=== PATIENT | female | born 1950 | race Caucasian/White ===

== ENCOUNTER → 2018-03-10 12:02 | Outpatient (CLI) | payer OTHER, SELFPAY ==
--- NOTE | 2018-03-10 | DI.MG.S_ITS ---
BILATERAL DIGITAL SCREENING MAMMOGRAM 3D/2D WITH CAD: 03/10/2018 CLINICAL: Routine screening. Comparison is made to exams dated: 02/13/2017 mammogram, 12/12/2015 mammogram - [facility], and 04/05/2014 mammogram - [facility]. There are scattered fibroglandular elements in both breasts. Current study was also evaluated with a Computer Aided Detection (CAD) system. No significant masses, calcifications, or other findings are seen in either breast. There has been no significant interval change. IMPRESSION: NEGATIVE There is no mammographic evidence of malignancy. A 1 year screening mammogram is recommended. This exam was interpreted at Station ID: [id number]. NOTE: For mammograms, a report in lay terms will be sent to the patient. Approximately 15% of breast malignancies will not be visualized mammographically. In the management of a palpable breast mass, a negative mammogram must not discourage biopsy of a clinically suspicious lesion. Electronically Signed By: Viktoriya srivastava/abner:03/10/2018 17:45:27 copy to: TAMI TOLEDO letter sent: Normal Exam ACR BI-RADS Category 1: Negative 3341F
== END ==
PROVIDERS: PCP Family Medicine; Visit Provider Family Medicine
DX: Z12.31 Encounter for screening mammogram for malignant neoplasm of breast (principal)
CPT/HCPCS: 77063; 77067

== ENCOUNTER → 2019-02-18 10:09 | Outpatient (CLI) | payer MEDICARE, OTHER, SELFPAY ==
--- NOTE | 2019-02-18 | DI.US.S_ITS ---
PROCEDURE: US ABDOMEN COMPLETE INDICATIONS: FULLNESS TECHNIQUE: Real-time scanning was performed of the abdominal and retroperitoneal organs, with image documentation. COMPARISON: [facility], US, US PELVIC COMPLETE, 02/18/2019, 10:51. FINDINGS: Liver: The liver demonstrates normal size. The liver demonstrates generalized increased echogenicity. This decreases ultrasound sensitivity for detection of hepatic masses. Gallbladder: No findings of gallstones or sludge are seen. The gallbladder wall is not thickened, measuring 3 mm or less. No specific pericholecystic fluid is seen. The sonographic Galeas sign is negative. Biliary ducts: Intrahepatic bile ducts are non-dilated. Extrahepatic bile duct caliber measures 4 mm. Normal is 6-7 mm or less in diameter, or 10 mm or less post-cholecystectomy. Pancreas: Visualized portions of the pancreas are sonographically normal. Spleen: Spleen is normal in size and homogeneous in echotexture. Kidneys: Kidneys are normal in size and echotexture. Right kidney measures 11.5 cm long; left kidney measures 10.8 cm long. At the inferior pole of the right kidney, there is a 1.2 cm apparent nonobstructing shadowing stone seen. No left-sided stones are seen. No hydronephrosis. No solid masses. Aorta: Visualized aorta is normal in caliber at less than 3 cm. Iliacs: Proximal common iliac arteries are normal in caliber at less than 2.5 cm. IVC: Intrahepatic inferior vena cava is patent. Miscellaneous: No free abdominal fluid. IMPRESSION: The liver demonstrates increased echogenicity. This finding is nonspecific, yet it is most commonly attributed to fatty infiltration. Apparent 1.2 cm nonobstructing stone seen at the inferior pole of the right kidney. The gallbladder demonstrates a normal sonographic appearance. No biliary dilatation is seen. Dictated by: Waqas Serrano M.D. on 02/18/2019 at 10:38 Approved by: Waqas Serrano M.D. on 02/18/2019 at 10:40
--- NOTE | 2019-02-18 | DI.US.S_ITS ---
PROCEDURE: INDICATIONS: TECHNIQUE: Real-time scanning was performed of the pelvic organs, with image documentation. Additional endovaginal scanning was necessary due to incomplete visualization of the adnexal and endometrial structures by transabdominal scanning. COMPARISON: [facility], US, US ABDOMEN COMPLETE, 02/18/2019, 10:39. [facility], US, PELVIC COMPLETE, 09/17/2016, 11:23. FINDINGS: Transabdominal scanning: No pathologic free abdominal or pelvic fluid. On the accompanying abdominal ultrasound, the kidneys demonstrate a normal appearance. Endovaginal scanning: Uterus: Uterus is normal in size at 7.6 x 5.2 x 8.8 cm. The endometrium measures abnormally thickened at 13.5 mm in combined thickness. Hypoechoic uterine lesions are seen, which are attributed to fibroids. They measure as follows: Right anterior uterus, 3.5 x 3.5 x 4 cm Left anterior uterus, 3.3 x 3.4 x 3.3 cm Ovaries: Neither ovary can be seen. IMPRESSION: The endometrial stripe is abnormally thickened in this postmenopausal woman. Differential diagnosis includes endometrial neoplasm and endometrial hyperplasia. Recommend correlation with endometrial histology, as clinically appropriate. Fibroid uterus. Neither ovary can be seen. Dictated by: Waqas Serrano M.D. on 02/18/2019 at 10:40 Approved by: Waqas Serrano M.D. on 02/18/2019 at 10:42
== END ==
PROVIDERS: PCP Family Medicine; Visit Provider Physician Assistant
DX: R10.9 Unspecified abdominal pain (principal); R10.2 Pelvic and perineal pain; R93.89 Abnormal findings on diagnostic imaging of other specified body structures; D25.9 Leiomyoma of uterus, unspecified; R14.0 Abdominal distension (gaseous); N20.0 Calculus of kidney
CPT/HCPCS: 76700; 76830; 76856

== ENCOUNTER → 2019-04-06 15:58 | Outpatient (CLI) | payer MEDICARE, OTHER, SELFPAY ==
--- NOTE | 2019-04-06 | DI.MG.S_ITS ---
BILATERAL DIGITAL SCREENING MAMMOGRAM 3D/2D WITH CAD: 04/06/2019 CLINICAL: Routine screening. Comparison is made to exams dated: 03/10/2018 mammogram, 02/13/2017 mammogram, and 12/12/2015 mammogram - [facility]. There are scattered fibroglandular elements in both breasts. Current study was also evaluated with a Computer Aided Detection (CAD) system. No significant masses, calcifications, or other findings are seen in either breast. There has been no significant interval change. IMPRESSION: NEGATIVE There is no mammographic evidence of malignancy. A 1 year screening mammogram is recommended. This exam was interpreted at Station ID: [id number]. NOTE: For mammograms, a report in lay terms will be sent to the patient. Approximately 15% of breast malignancies will not be visualized mammographically. In the management of a palpable breast mass, a negative mammogram must not discourage biopsy of a clinically suspicious lesion. Electronically Signed By: Imer godinez/abner:04/06/2019 16:28:59 copy to: TAMI TOLEDO letter sent: Normal Exam ACR BI-RADS Category 1: Negative 3341F
== END ==
PROVIDERS: PCP Family Medicine; Visit Provider Physician Assistant
DX: Z12.31 Encounter for screening mammogram for malignant neoplasm of breast (principal)
CPT/HCPCS: 77063; 77067

== ENCOUNTER → 2020-02-28 09:14 | Outpatient (CLI) | payer MEDICARE, OTHER, SELFPAY ==
[2020-02-28 10:15] LABS: BUN Creatinine Ratio 26.9 (6-22); Blood Urea Nitrogen 21 mg/dL (7-17); Estimated Glomerular Filt Rate > 60.0 mL/min (>60)
--- NOTE | 2020-02-28 10:50 | DI.CT.S_ITS ---
PROCEDURE: CT ABDOMEN PELVIS WO/W CON INDICATIONS: LEFT LOWER QUADRANT PAIN, HEMATURIA, PELVIC PERINEAL PAIN TECHNIQUE: Optional 5 mm thick noncontrast images acquired from the diaphragm to the symphysis pubis. After the administration of intravenous contrast, 5 mm thick images acquired from the diaphragm to the symphysis pubis after a 10-minute delay. 2 mm thick coronal and sagittal reformats were then performed of the kidneys and ureters. For radiation dose reduction, the following was used: automated exposure control, adjustment of mA and/or kV according to patient size. COMPARISON: [facility], , US PELVIC COMPLETE, 02/18/2019, 10:51. FINDINGS: Image quality: Excellent. Lung bases: Lung bases are clear. Heart size is normal. Urinary system: Both kidneys are normal in size, without hydronephrosis or left-sided nephrolithiasis on pre-contrast images. There is a right lower renal collecting system calculus measuring 4 x 5 mm having an internal radiodensity of 489 Hounsfield units, nonobstructive without adjacent inflammation. No perinephric fat stranding. There is normal bilateral renal enhancement. Renal calyces appear normal in morphology when filled with contrast. Opacified portions of both ureters demonstrate normal caliber. Bladder wall thickness is normal. No calcified bladder stones. Other solid organs: Liver is normal in size and enhancement. Gallbladder appears normal . Biliary system is non dilated. Pancreas enhances normally. Spleen is normal in size and enhancement. No adrenal nodules. Peritoneum and bowel: Bowel loops demonstrate normal wall thickness and caliber. No free fluid or air. Note is made of an unusual soft tissue prominence at the posterior border of the a gastric cardia/body junction, best seen on postcontrast imaging and measuring an estimated 3.5 cm AP, 4.5 cm transverse and 3.4 cm craniocaudad. This is best seen on series 3, image 41. Nodes and vessels: No retroperitoneal or mesenteric adenopathy by size criteria. Aorta and inferior vena cava are normal in size. Abdominal wall: No ventral hernias. Pelvis: No pathologic free pelvic fluid. No inguinal hernias or adenopathy. Normal appendix found right lower quadrant. Lobulated contour of the uterus, consistent with multiple fibroids. Several scattered pelvic phleboliths are seen bilaterally near the expected course of both distal ureters, none of which appear located within the ureters themselves. Bones: No suspicious bony lesions. No vertebral body compression fractures. IMPRESSION: 1. No evidence of diverticulitis. Normal appendix found right lower quadrant. A definite source of reported left lower quadrant pain is not seen. 2. Lobulated contours of the uterus, consistent with multiple uterine fibroids. Pelvic ultrasound performed 02/18/19 as documented presence of uterine fibroids. 3. There is an unexpected finding of what appears to be a 4.5 cm maximal dimension ovoid soft tissue mass contiguous with the posterior border of the gastric cardia/body junction, projecting into the suprarenal space above the level of the left adrenal gland. This could represent a GI stromal tumor and follow-up surgical consultation likely is warranted. The current study is optimized for urinary tract visualization. MR scanning without and with contrast targeted to this area would provide the most accurate assessment for multiplanar image acquisition. 4. 4 x 5 mm nonobstructive right renal collecting system calculus incidentally noted Dictated by: Tom Keith M.D. on 02/28/2020 at 12:38 Approved by: Tom Keith M.D. on 02/28/2020 at 12:58
== END ==
PROVIDERS: PCP Physician Assistant; Referring Provider Physician Assistant; Visit Provider Physician Assistant
DX: R10.32 Left lower quadrant pain (principal); R10.2 Pelvic and perineal pain; R31.9 Hematuria, unspecified; D49.2 Neoplasm of unspecified behavior of bone, soft tissue, and skin; D25.9 Leiomyoma of uterus, unspecified; K31.9 Disease of stomach and duodenum, unspecified; N20.0 Calculus of kidney
CPT/HCPCS: 36415; 74178; 82565; 84520; Q9967

== ENCOUNTER 2020-03-30 09:44 | Day surgery (SDC) | payer MEDICARE, OTHER, SELFPAY ==
--- NOTE | 2020-03-30 | PATH_ITS ---
[facility] Accession Number: [id number] . 01 Material submitted: . PART A: cecum - CECUM POLYP PART B: colon - ASCENDING COLON LIPOMA . 02 Diagnosis: A. Cecum, Polyp: Tubular adenoma. Additional step sections examined. . B. Ascending Colon, Biopsy: Colonic mucosa with focal benign submucosal adipose tissue, consistent with endoscopic impression of submucosal lipoma. Negative for dysplasia or malignancy. MRV 04/04/2020 1400 Local . 02 Electronically signed: . Mati Folres MD, PhD, Pathologist NPI- [id number] . 01 Gross description: . Part A: CECUM POLYP: Received in formalin is 1 fragment(s) of carter, soft tissue measuring 0.3 x 0.3 x 0.2 cm submitted entirely in 1 cassette(s) Part B: ASCENDING COLON LIPOMA: Received in formalin are 2 fragment(s) of carter, soft tissue measuring 0.9 x 0.2 x 0.1 cm to 0.3 x 0.2 x 0.1 cm submitted entirely in 1 cassette(s) /QBJ 03/31/2020 0756 Local . 02 Pathologist provided ICD-10: D12.0 . 02 CPT . 236163, [id number] Performed at: [address] [facility] [address], [place], [place] [id number] MD Niall Ureña MD Phone: [phone] Performed at: 02 [facility] [address] [place], [place] [id number] MD Jacqueline Pitts MD Phone: [phone]
[2020-03-30 10:38] VITALS: BP 130/79; PULSE 86; RESP 16; TEMP 37.1; O2SAT 98; BMI 34.4
[2020-03-30] MEDS: SODIUM CHLORIDE 0.9% 1,000 ML 200 ML IV (11:00)
--- NOTE | 2020-03-30 11:43 | PM.HP.1 ---
History of Present Illness History of Present Illness Date Patient Seen: 03/30/20 Time Patient Seen: 11:43 Chief complaint: [facility] Narrative: This is a 69-year-old woman with history of obesity (BMI 34.5) noncardiac chest pain, recent stress test and echocardiogram which were reportedly normal, unexplained left lower quadrant pain, and occasional rectal bleeding. She denies any personal or family history of colon polyps or colon cancers. She has never had a colonoscopy before. She recently had a CT scan which identified an abnormality in her stomach. She says she has been referred for an MRI to further evaluate this. Asked if she had been referred to a flight tower dispatcher for upper endoscopy, EUS and biopsy of the mass. She says that she had not been referred for this, but would discuss it with her primary care provider. ROS: Positive for noncardiac chest pain, lower extremity swelling, shortness of breath, sleep apnea, arthritis, GERD symptoms, prediabetes, urinary incontinence, anxiety, depression. Thirteen system review is otherwise negative other than as mentioned below and in HPI. PE: GENERAL: Well groomed and cooperative. Obese. Appears stated age. Answers questions promptly and appropriately. Vital signs noted. HENT: Normocephalic, atraumatic. Hearing intact. EYES: Conjunctiva pink, sclera white, no periorbital swelling. CARDIOVASCULAR: Regular rate. No pedal edema. RESPIRATORY: Non-tachypneic, breathing comfortably on room air. GASTROINTESTINAL: Abdomen soft and non-distended GENITALURINARY: No flank tenderness. MUSCULOSKELETAL: Equal tone and mass bilaterally. SKIN: Warm, dry, soft, appropriate color for ethnicity. No other lesions, rashes, or wounds. NEURO: Alert and Oriented X 3. No gross sensory deficits, or cognitive issues. PSYCH: Appropriate affect and mood. Patient History Family & Social History Social History: household members family Tobacco & Substance use: Smoking Status Never smoker alcohol intake frequency a few times a month Substance Use Type does not use Meds Home Medications and Allergies Home Medications Medication Instructions Recorded Confirmed Type aspirin [Aspir-Low] 81 mg PO DAILY 03/30/20 03/30/20 History bupropion HCl 300 mg PO QAM 03/30/20 03/30/20 History lisinopril 20 mg PO DAILY 03/30/20 03/30/20 History Allergies Allergy/AdvReac Type Severity Reaction Status Date / Time No Known Drug Allergies Allergy Verified 03/30/20 10:30 Exam Vital Signs (past 8 hours): - 03/30/20 10:38 Temperature 98.7 F Pulse Rate 86 Respiratory Rate 16 Blood Pressure 130/79 Pulse Oximetry 98 Oxygen Delivery Method Room Air Assessment & Plan Assessment and plan (1) At average risk for colon cancer: Status: Acute (2) Obesity (BMI 30.0-34.9): Status: Acute (3) GERD (gastroesophageal reflux disease): Status: Acute (4) Non-cardiac chest pain: Status: Acute (5) Pre-diabetes: Status: Acute (6) Anxiety and depression: Status: Acute (7) Sleep apnea: Status: Acute Assessment & Plan narrative: Risks and benefits of screening colonoscopy and possible polypectomy were discussed with the patient including risk of bleeding, perforation, need for additional procedures, risks of anesthesia. The patient desires to proceed with the colonoscopy procedure. COVID-19 COVID-19 status: Negative Result date/Date tested (Pos, Neg/Pending): 03/28/20 Time Spent With Patient Time with patient: 15-24 minutes
--- NOTE | 2020-03-30 11:50 | P.OP.ENDO_ITS ---
Operative Date/Time/Diagnoses Date of procedure: 03/30/20 Time of procedure: 11:50 Pre-op diagnosis: Average risk for colon cancer, never had a screening colonoscopy Post-op diagnosis: other (Tiny cecal polyp, diverticulosis, descending colon lipoma) Procedure & Clinicians Study performed: Colonoscopy Procedural sedation performed by the endoscopist Cecal polypectomy with cold forceps Cold forceps biopsy of ascending colon lipoma Same procedure as scheduled: Yes Indications: Average risk for colon cancer, never had a screening colonoscopy Surgeon: Emily Rodney Procedure Notes SCOAP/Timeout: Performed Procedure in detail: The patient was brought to the room and placed in left lateral decubitus position with all bony prominences padded. A time-out was performed and then the patient was given procedural sedation starting with 2 mg of Versed and 100 mcg of fentanyl. A total of 4 mg of Versed and 100 micro g of fentanyl were given for the entire procedure. Vitals were monitored throughout the procedure and remained stable. Once adequately sedated, the procedure was begun. A rectal exam was performed revealing slightly swollen external hemorrhoids. The colonoscope was then introduced to the rectum and advanced to the cecum in the usual fashion. The cecum was identified by the appendiceal orifice, the mucosal tri-fold, and the ileocecal valve. A small benign- appearing polyp in the cecum was removed with cold forceps. The lipoma was found at 80 cm in the ascending colon. It was unroofed and biopsied. Beneath the mucosa the underlying tissue appeared consistent with a simple lipoma. The scope was then retracted while rotating side to side and examining each mucosal fold. Moderate diverticulosis was seen throughout the descending and sigmoid colon. At the conclusion of the procedure retroflexion was performed and small grade 1-2 internal hemorrhoids without stigmata of bleeding were seen. The scope was then withdrawn from the rectum the procedure was concluded. The patient tolerated the procedure well and was transferred to the PACU in stable condition. Scope withdrawal time: 13 Sedation minutes: 22 Findings: diverticulosis, polyp and other findings (Ascending colon lipoma) Specimen(s): other (Cecal polyp, lipoma biopsies) Complications: none Impression: Benign-appearing cecal polyp, benign appearing ascending colon lipoma, moderately severe diverticulosis throughout the descending and sigmoid colon Post-procedure Recommendations: Colonscopy in 10 years (So long as pathology is benign) and Start medication(s) (Recommend fiber supplement such as Metamucil 2 tsp in 8 oz of water once to twice daily for diverticulosis) Follow up: as needed Disposition: PACU
[2020-03-30] MEDS: MIDAZOLAM 5 MG/5 ML VIAL IV (11:57)
[2020-03-30] MEDS: fentaNYL 250 MCG/5 ML INJ IV (11:57)
[2020-03-30 12:17] VITALS: BP 119/62; PULSE 73; RESP 13; O2SAT 100
[2020-03-30 12:22] VITALS: BP 120/65; PULSE 72; RESP 14; O2SAT 100
[2020-03-30 12:27] VITALS: BP 131/72; PULSE 77; RESP 14; O2SAT 100
[2020-03-30 12:32] VITALS: BP 134/76; PULSE 73; RESP 13; O2SAT 100
--- NOTE | 2020-03-30 12:54 | SUR.PHASEI ---
1252 Dr Ge here, informed him of BP, tx, stated Rx may be repeated if needed. Showed him current VS of 145/97; no need to repeat Rx. He spoke with the patient
[2020-03-30 13:00] VITALS: BP 116/72; PULSE 67; RESP 16; TEMP 36.3; O2SAT 98
--- NOTE | 2020-03-30 13:21 | SUR.PHASEI ---
If charting found regarding a sore throat, it is in error. This patient did not have a sore throat, nor was she hypertensive.
--- NOTE | 2020-03-30 15:33 | SUR.PHASEII ---
Late entry: Sister brought in, d/c instructions discussed, both voiced an understanding, pt's belly soft, no nausea. Pt left when ready and left in stable condition.
== END 2020-03-30 13:15 | disposition home or self-care (01) ==
PROVIDERS: PCP Physician Assistant; Referring Provider Surgery; Visit Provider Surgery
PROC: 0DJD8ZZ Inspection of Lower Intestinal Tract, Via Natural or Artificial Opening Endoscopic (ICD-10-PCS; CPT 45378; principal; 2020-03-30 10:45)
DX: Z12.11 Encounter for screening for malignant neoplasm of colon (principal); E66.9 Obesity, unspecified; K21.9 Gastro-esophageal reflux disease without esophagitis; R73.03 Prediabetes; F41.9 Anxiety disorder, unspecified; F32.9 Major depressive disorder, single episode, unspecified; G47.30 Sleep apnea, unspecified; Z68.34 Body mass index [BMI] 34.0-34.9, adult; K57.30 Diverticulosis of large intestine without perforation or abscess without bleeding; D12.0 Benign neoplasm of cecum
CPT/HCPCS: 45380; 99152; J2250; J3010

== ENCOUNTER → 2020-05-10 08:52 | Outpatient (CLI) | payer MEDICARE, OTHER, SELFPAY ==
--- NOTE | 2020-05-10 | DI.MRI.S_ITS ---
PROCEDURE: MR ABDOMEN WO/W CON INDICATIONS: Gastric mass seen on prior CT. TECHNIQUE: Coronal HASTE, axial 2D FLASH in- and [id number]; axial breath-hold T2 FSE. Dynamic axial VIBE during the administration of contrast; post-contrast coronal VIBE or 2D FLASH with fat saturation from the hepatic dome to the iliac crests. Optional diffusion weighted imaging and ADC may be performed. COMPARISON: [facility], CT, CT ABDOMEN PELVIS WO/W CON, 02/28/2020, 10:50. FINDINGS: Image quality: Excellent. Lung bases: No basal pleural effusions. Heart size is normal. There is a small hiatal hernia. Solid organs: The liver demonstrates diffuse mild signal dropout on out of phase imaging compatible with mild fatty infiltration. Gallbladder appears within normal limits without gallstones. Biliary system is non dilated. Pancreas is normal in morphology. Spleen is normal in size and enhancement. No adrenal nodules. Kidneys demonstrate no hydronephrosis. Nodes and vessels: No retroperitoneal or mesenteric adenopathy by size criteria. Aorta and inferior vena cava are normal in size. Bowel and peritoneum: There is an exophytic projection along the posterior aspect of the gastric fundus demonstrated corresponding to the finding on prior CT. This demonstrates isointense signal to the gastric wall on all sequences. The findings likely represent a nondistended posterior gastric diverticulum. No discrete mass identified. Visualized bowel loops are normal in caliber. No free fluid. Bones and soft tissues: No ventral hernias. Bone marrow is normal in overall signal. IMPRESSION: 1. Exophytic projection along the posterior gastric fundus likely represents a gastric diverticulum. Consider further evaluation with endoscopy or an upper GI study. 2. Mild hepatic steatosis. 3. Small hiatal hernia. Dictated by: Niall Garcia M.D. on 05/10/2020 at 13:12 Approved by: Niall Garcia M.D. on 05/10/2020 at 13:23
== END ==
PROVIDERS: PCP Physician Assistant; Referring Provider Physician Assistant; Visit Provider Physician Assistant
DX: R93.5 Abnormal findings on diagnostic imaging of other abdominal regions, including retroperitoneum (principal); K76.0 Fatty (change of) liver, not elsewhere classified; K44.9 Diaphragmatic hernia without obstruction or gangrene
CPT/HCPCS: 74183; A9579

== ENCOUNTER → 2020-05-26 09:27 | Outpatient (CLI) | payer MEDICARE, OTHER, SELFPAY ==
--- NOTE | 2020-05-26 | DI.MG.S_ITS ---
BILATERAL DIGITAL SCREENING MAMMOGRAM 3D/2D WITH CAD: 05/26/2020 CLINICAL: Routine screening. Comparison is made to exams dated: 04/06/2019 mammogram, 03/10/2018 mammogram, and 02/13/2017 mammogram - [facility]. There are scattered fibroglandular elements in both breasts. Current study was also evaluated with a Computer Aided Detection (CAD) system. No significant masses, calcifications, or other findings are seen in either breast. There has been no significant interval change. IMPRESSION: NEGATIVE There is no mammographic evidence of malignancy. A 1 year screening mammogram is recommended. This exam was interpreted at Station ID: [id number]. NOTE: For mammograms, a report in lay terms will be sent to the patient. Approximately 15% of breast malignancies will not be visualized mammographically. In the management of a palpable breast mass, a negative mammogram must not discourage biopsy of a clinically suspicious lesion. Electronically Signed By: Imer haynes/abner:05/28/2020 09:02:49 copy to: TAMI TOLEDO letter sent: Normal Exam ACR BI-RADS Category 1: Negative 3341F
== END ==
PROVIDERS: PCP Physician Assistant; Referring Provider Physician Assistant; Visit Provider Physician Assistant
DX: Z12.31 Encounter for screening mammogram for malignant neoplasm of breast (principal)
CPT/HCPCS: 77063; 77067

== ENCOUNTER → 2020-08-09 11:15 | Outpatient (CLI) | payer MEDICARE, OTHER, SELFPAY ==
--- NOTE | 2020-08-09 | DI.MRI.S_ITS ---
PROCEDURE: MR SHOULDER RT WO CON INDICATIONS: Unspecified injury of right shoulder and upper arm TECHNIQUE: Noncontrast oblique coronal T2 fast spin echo with fat saturation, oblique sagittal T1 spin echo and T2 fast spin echo with fat saturation, axial T1 spin echo and T2 fast spin echo with fat saturation through the shoulder. COMPARISON: None. FINDINGS: Image quality: Excellent. Rotator cuff: There is mild diffuse T2 signal elevation within the supraspinatus and infraspinatus tendons at the humeral insertion site. There is superimposed high-grade intrasubstance tearing of the mid supraspinatus tendon at the humeral insertion site, measuring 6 mm anteroposterior. There is low-grade bursal surface fraying of the anterior, mid, and posterior aspect of the infraspinatus tendon at the humeral insertion site extending the musculotendinous junction. Subscapularis and teres minor tendons are intact. No rotator cuff atrophy. Bones and bursae: No bone marrow contusions or fractures. Moderate acromioclavicular joint degeneration. The acromion demonstrates conventional anatomy, without an os acromiale small amount of subacromial-subdeltoid or subcoracoid bursal fluid is present. Capsule and soft tissues: Labrum demonstrates undercutting and irregularity posteriorly. The long head of the biceps tendon demonstrates normal location and low-grade partial-thickness tearing. The rotator interval appears normal, without fibrosis. The coracohumeral ligament is normal in thickness. IMPRESSION: 1. Supraspinatus and infraspinatus tendinopathy. Superimposed high-grade tearing of the supraspinatus. 2. Subacromial bursitis. 3. Acromioclavicular joint osteoarthritis. 4. Low-grade partial thickness biceps tendon tear. 5. Possible posterior labral tear. Dictated by: Samir Palafox M.D. on 08/09/2020 at 13:19 Approved by: Samir Palafox M.D. on 08/09/2020 at 13:21
== END ==
PROVIDERS: PCP Physician Assistant; Referring Provider Physician Assistant; Visit Provider Physician Assistant
DX: M75.101 Unspecified rotator cuff tear or rupture of right shoulder, not specified as traumatic (principal); M75.51 Bursitis of right shoulder; M19.011 Primary osteoarthritis, right shoulder; S46.211A Strain of muscle, fascia and tendon of other parts of biceps, right arm, initial encounter
CPT/HCPCS: 73221

== ENCOUNTER → 2021-02-23 10:55 | Outpatient (CLI) | payer MEDICARE, OTHER, SELFPAY ==
--- NOTE | 2021-02-23 | DI.MRI.S_ITS ---
PROCEDURE: MR SHOULDER RT WO CON INDICATIONS: Unspecified rotator cuff tear or rupture of right TECHNIQUE: Noncontrast oblique coronal T2 fast spin echo with fat saturation, oblique sagittal T1 spin echo and T2 fast spin echo with fat saturation, axial T1 spin echo and T2 fast spin echo with fat saturation through the shoulder. COMPARISON: [facility], MR, MR SHOULDER RT WO CON, 08/09/2020, 11:23. FINDINGS: Image quality: Excellent. Rotator cuff: Tendinosis and moderate grade articular and bursal surface partial thickness tear involving distal supraspinatus at its insertion on humeral head is seen extending to musculotendinous junction. Distal infraspinatus tendinosis is also seen. Tendinosis and low-grade intrasubstance partial-thickness tear involving distal subscapularis is noted. Sagittal images demonstrate mild supraspinatus muscle atrophy. Bones and bursae: No bone marrow contusions or fractures. There is moderate acromioclavicular joint osteoarthritis and ackc-ik-oycaorbb glenohumeral joint osteoarthritis. Moderate amount of subacromial subdeltoid bursal fluid is seen. Capsule and soft tissues: There is signal abnormality involving posterior superior labrum at 9 to 12 o'clock position suggestive of extensive posterior superior labral tear. The long head of the biceps tendinosis and low-grade intrasubstance partial-thickness tear is seen. The rotator interval appears normal, without fibrosis. The coracohumeral ligament is normal in thickness. IMPRESSION: 1. Tendinosis and moderate grade articular and bursal surface partial thickness tear involving distal supraspinatus extending to musculotendinous junction. Distal infraspinatus tendinosis. Tendinosis and low-grade intrasubstance partial-thickness tear involving distal subscapularis. No full-thickness rotator cuff tendon rupture. Mild supraspinatus muscle atrophy. 2. Moderate acromioclavicular joint and glenohumeral joint osteoarthritis. Moderate amount of subacromial subdeltoid bursal fluid. 3. Suggestion of posterior superior labral tear at 9 to 12 o'clock position. 4. Proximal intra-articular portion of long head of biceps tendinosis and low-grade intrasubstance partial-thickness tear. Dictated by: Jonathan Patel M.D. on 02/25/2021 at 9:04 Approved by: Jonathan Patel M.D. on 02/25/2021 at 9:16
== END ==
PROVIDERS: PCP Physician Assistant; Referring Provider Orthopaedic Surgery; Visit Provider Orthopaedic Surgery
DX: M75.111 Incomplete rotator cuff tear or rupture of right shoulder, not specified as traumatic (principal); S46.111A Strain of muscle, fascia and tendon of long head of biceps, right arm, initial encounter; M19.011 Primary osteoarthritis, right shoulder
CPT/HCPCS: 73221

== ENCOUNTER → 2021-07-05 09:33 | Outpatient (CLI) | payer MEDICARE, OTHER, SELFPAY ==
[2021-07-05 19:12] LABS: Add Manual Diff / Slide Review NO; Basophils Absolute Auto 0 /uL (0-100); Basophils Percent Auto 0.6 % (0-2); Eosinophils Absolute Auto 200 /uL (0-450); Eosinophils Percent Auto 2.4 % (2-4); Hemoglobin 13.1 g/dL (12.0-16.0); Lymphocytes Absolute Auto 1500 /uL (1100-4500); Lymphocytes Percent Auto 19.8 % (25-40); Mean Corpuscular HGB Conc 33.5 % (30-36); Mean Corpuscular Hemoglobin 30.6 PG (26-34); Mean Corpuscular Volume 91.3 fL (80-100); Monocytes Absolute Auto 500 /uL (0-900); Monocytes Percent Auto 6.6 % (3-14); Neutrophils Absolute Auto 5500 /uL (1500-7000); Neutrophils Percent Auto 70.6 % (50-75); Platelet Count 423 X10^3/uL (150-400); Red Blood Cell Count 4.27 X10^6/uL (4.0-5.2); Red Cell Distribution Width 13.4 % (11.6-14.8); White Blood Cell Count 7.8 X10^3/uL (4.5-11.0)
[2021-07-05 19:15] LABS: Alanine Aminotransferase 20 IU/L (<35); Albumin 4.2 g/dL (3.5-5.0); Albumin Globulin Ratio 1.5 (1.0-2.8); Alkaline Phosphatase 91 U/L (38-126); Aspartate Aminotransferase 27 IU/L (14-36); BUN Creatinine Ratio 21.8 (6-22); Bilirubin Total 0.5 mg/dL (0.2-1.3); Blood Urea Nitrogen 19 mg/dL (7-17); Calcium 10.1 mg/dL (8.4-10.2); Carbon Dioxide 29 mmol/L (22-32); Chloride 105 mmol/L (98-107); Cholesterol 214 mg/dL (140-199); Estimated Glomerular Filt Rate > 60.0 mL/min (>60); Globulin 2.8 g/dL (1.7-4.1); Glucose 119 mg/dL (80-110); HDL Cholesterol 55 mg/dL (40-60); HEMOLYSIS < 15 (0-50); LDL Cholesterol Calculated 140 mg/dL (<100); Potassium 4.7 mmol/L (3.4-5.1); Sodium 138 mmol/L (137-145); Triglycerides 97 mg/dL (35-150)
[2021-07-05 19:24] LABS: Hemoglobin A1C% w Est Avg Glu 5.9 % (4.0-6.0)
[2021-07-05 19:40] LABS: TSH w/ Reflex to FT4 1.09 uIU/mL (0.47-4.68)
== END ==
PROVIDERS: PCP Physician Assistant; Visit Provider Physician Assistant
DX: S49.91XA Unspecified injury of right shoulder and upper arm, initial encounter (principal); R73.03 Prediabetes; E66.9 Obesity, unspecified; R73.9 Hyperglycemia, unspecified; Z13.6 Encounter for screening for cardiovascular disorders; Z79.899 Other long term (current) drug therapy
CPT/HCPCS: 80053; 80061; 83036; 84443; 85025

== ENCOUNTER → 2021-07-13 09:52 | Outpatient (CLI) | payer MEDICARE, OTHER, SELFPAY ==
--- NOTE | 2021-07-13 09:55 | DI.MG.S_ITS ---
BILATERAL DIGITAL SCREENING MAMMOGRAM 3D/2D WITH CAD: 07/13/2021 CLINICAL: Routine screening. Comparison is made to exams dated: 05/26/2020 mammogram, 04/06/2019 mammogram, 03/10/2018 mammogram, and 02/13/2017 mammogram - [facility]. There are scattered fibroglandular elements in both breasts. Current study was also evaluated with a Computer Aided Detection (CAD) system. No significant masses, calcifications, or other findings are seen in either breast. There has been no significant interval change. IMPRESSION: NEGATIVE There is no mammographic evidence of malignancy. A 1 year screening mammogram is recommended. This exam was interpreted at Station ID: [id number]. NOTE: For mammograms, a report in lay terms will be sent to the patient. Approximately 15% of breast malignancies will not be visualized mammographically. In the management of a palpable breast mass, a negative mammogram must not discourage biopsy of a clinically suspicious lesion. Electronically Signed By: Vishal bates/abner:07/15/2021 09:33:34 copy to: TAMI TOLEDO letter sent: Normal Exam ACR BI-RADS Category 1: Negative 3341F
== END ==
PROVIDERS: PCP Physician Assistant; Referring Provider Physician Assistant; Visit Provider Physician Assistant
DX: Z12.31 Encounter for screening mammogram for malignant neoplasm of breast (principal)
CPT/HCPCS: 77063; 77067

== ENCOUNTER → 2022-08-16 08:55 | Outpatient (CLI) | payer MEDICARE, OTHER, SELFPAY ==
--- NOTE | 2022-08-16 | DI.MG.S_ITS ---
BILATERAL DIGITAL SCREENING MAMMOGRAM 3D/2D WITH CAD: 08/16/2022 CLINICAL: Routine screening. Comparison is made to exams dated: 07/13/2021 mammogram, 05/26/2020 mammogram, and 04/06/2019 mammogram - [facility]. There are scattered areas of fibroglandular density in both breasts (category b / 25%-50% glandular tissue). Current study was also evaluated with a Computer Aided Detection (CAD) system. No significant masses, calcifications, or other findings are seen in either breast. There has been no significant interval change. IMPRESSION: NEGATIVE There is no mammographic evidence of malignancy. A 1 year screening mammogram is recommended. Based on the Tyrer Cuzick model (a risk assessment model) the patient's lifetime risk is 2.9% and her 10 year risk is 1.9%. According to the ACR, ACS, and NCCN guidelines, an annual breast MRI exam along with mammogram is recommended if the patient's lifetime risk is 20% or greater. This exam was interpreted at Station ID: [id number]. NOTE: For mammograms, a report in lay terms will be sent to the patient. Approximately 15% of breast malignancies will not be visualized mammographically. In the management of a palpable breast mass, a negative mammogram must not discourage biopsy of a clinically suspicious lesion. Electronically Signed By: Imer godinez/abner:08/18/2022 07:31:28 copy to: TAMI TOLEDO letter sent: Normal Exam ACR BI-RADS Category 1: Negative 3341F
== END ==
PROVIDERS: PCP Physician Assistant; Referring Provider Physician Assistant; Visit Provider Physician Assistant
DX: Z12.31 Encounter for screening mammogram for malignant neoplasm of breast (principal)
CPT/HCPCS: 77063; 77067

== ENCOUNTER → 2023-01-27 13:26 | Outpatient (CLI) | payer MEDICARE, OTHER, SELFPAY ==
--- NOTE | 2023-01-27 | DI.US.S_ITS ---
LIMITED ULTRASOUND OF LEFT BREAST AND AXILLA: 01/27/2023 CLINICAL: Palpable left axilla lump. Comparison is made to exams dated: 01/27/2023 mammogram, 08/16/2022 mammogram, and 07/13/2021 mammogram - [facility]. Color flow ultrasound of the left breast axilla was performed on the areas of interest. Royal scale images of the real-time examination were reviewed. IMPRESSION: NEGATIVE There is no sonographic evidence of malignancy. There is no mammographic or sonographic abnormality seen in the left axilla to correspond with the palpable abnormality in the left axilla, however, clinical followup is recommended. Return to annual mammogram screening schedule is recommended. Future imaging is recommended as follows: 08/17/2023 screening mammogram. This exam was interpreted at Station ID: [id number]. Electronically Signed By: Viktoriya Kim M.D. lk/:01/27/2023 14:34:39 copy to: TAMI TOLEDO letter sent: Clinical Evaluation Ultrasound BI-RADS: 1 Negative
--- NOTE | 2023-01-27 13:27 | DI.US.S_ITS ---
ULTRASOUND OF RIGHT BREAST: 01/27/2023 CLINICAL: Palpable right breast lump. Comparison is made to exams dated: 01/27/2023 mammogram, 08/16/2022 mammogram, and 07/13/2021 mammogram - [facility]. Ultrasound of the right breast was performed on the area of interest. Royal scale images of the real-time examination were reviewed. IMPRESSION: NEGATIVE There is no sonographic evidence of malignancy. There is no mammographic or sonographic abnormality seen in the right breast to correspond with the palpable abnormality, however, clinical followup is recommended. Return to annual mammogram screening schedule is recommended. Future imaging is recommended as follows: 08/17/2023 screening mammogram. This exam was interpreted at Station ID: [id number]. Electronically Signed By: Viktoriya srivastava/abner:01/27/2023 14:35:46 copy to: TAMI TOLEDO letter sent: Clinical Evaluation Ultrasound BI-RADS: 1 Negative
--- NOTE | 2023-01-27 13:27 | DI.MG.S_ITS ---
BILATERAL DIGITAL DIAGNOSTIC MAMMOGRAM 3D/2D: 01/27/2023 CLINICAL: Bilateral breast lumps. Comparison is made to exams dated: 08/16/2022 mammogram, 07/13/2021 mammogram, and 05/26/2020 mammogram - [facility]. There are scattered areas of fibroglandular density in both breasts (category b / 25%-50% glandular tissue). No significant masses, calcifications, or other findings are seen in either breast. IMPRESSION: INCOMPLETE: NEEDS ADDITIONAL IMAGING EVALUATION There are no mammographic abnormalities seen in the right breast or in the left axilla to correspond with the palpable abnormalities, however, targeted ultrasound of the bilateral breasts is recommended and will be performed immediately following this exam. Based on the Tyrer Cuzick model (a risk assessment model) the patient's lifetime risk is 2.9% and her 10 year risk is 1.9%. According to the ACR, ACS, and NCCN guidelines, an annual breast MRI exam along with mammogram is recommended if the patient's lifetime risk is 20% or greater. This exam was interpreted at Station ID: [id number]. NOTE: For mammograms, a report in lay terms will be sent to the patient. Approximately 15% of breast malignancies will not be visualized mammographically. In the management of a palpable breast mass, a negative mammogram must not discourage biopsy of a clinically suspicious lesion. Electronically Signed By: Viktoriya srivastava/:01/27/2023 14:18:44 copy to: TAMI TOLEDO [facility] BI-RADS Category 0: Incomplete 3340F
== END ==
PROVIDERS: PCP Physician Assistant; Referring Provider Physician Assistant; Visit Provider Physician Assistant
DX: R92.2 Inconclusive mammogram (principal); N63.11 Unspecified lump in the right breast, upper outer quadrant; N63.32 Unspecified lump in axillary tail of the left breast
CPT/HCPCS: 76642; 76882; 77066; G0279

== ENCOUNTER → 2023-09-01 15:57 | Outpatient (CLI) | payer MEDICARE, OTHER, SELFPAY | PROVIDERS: PCP Physician Assistant; Visit Provider Physician Assistant | DX: R39.89 Other symptoms and signs involving the genitourinary system (principal) | CPT/HCPCS: 87086 ==

== ENCOUNTER → 2023-09-08 10:36 | Outpatient (CLI) | payer MEDICARE, OTHER, SELFPAY ==
[2023-09-08 19:54] LABS: Appearance Urine UA CLEAR; Bilirubin Urine UA NEGATIVE (NEGATIVE); Color Urine UA YELLOW; Glucose Urine UA NEGATIVE (Negative); Ketones Urine UA NEGATIVE (NEGATIVE); Leukocyte Esterase Urine UA NEGATIVE (NEGATIVE); Nitrite Urine UA NEGATIVE (Negative); Occult Blood Urine UA NEGATIVE (Negative); Protein Urine UA NEGATIVE (Negative); Specific Gravity Urine UA 1.015 (1.000-1.035); Urobilinogen Urine UA 0.2 E.U./dL (0.2)
[2023-09-08 20:15] LABS: Bacteria Urine None Seen; Culture Indicated Urine Cult Not Indicated; RBC Urine None Seen (0-5/HPF); Squamous Epithelial Cell Urine None Seen (0-5/HPF); Urine Volume 10mL (spun); WBC Urine None Seen (0-5/HPF)
== END ==
PROVIDERS: PCP Physician Assistant; Visit Provider Physician Assistant
DX: N39.46 Mixed incontinence (principal)
CPT/HCPCS: 81001

== ENCOUNTER → 2023-09-15 09:45 | Outpatient (CLI) | payer MEDICARE, OTHER, SELFPAY ==
[2023-09-18 11:10] LABS: Fecal Immunochemical Test Negative (Negative)
== END ==
LOC: LAB 01-04 09:42
PROVIDERS: PCP Physician Assistant; Referring Provider Physician Assistant; Visit Provider Physician Assistant
DX: Z12.11 Encounter for screening for malignant neoplasm of colon (principal); R31.9 Hematuria, unspecified; R73.9 Hyperglycemia, unspecified; E78.00 Pure hypercholesterolemia, unspecified; Z11.4 Encounter for screening for human immunodeficiency virus [HIV]; Z11.59 Encounter for screening for other viral diseases
CPT/HCPCS: 82274

== ENCOUNTER → 2023-09-22 09:32 | Outpatient (CLI) | payer MEDICARE, OTHER, SELFPAY ==
[2023-09-22 19:19] LABS: Add Manual Diff / Slide Review NO; Basophils Absolute Auto 0 /uL (0-100); Basophils Percent Auto 0.4 % (0-2); Eosinophils Absolute Auto 200 /uL (0-450); Eosinophils Percent Auto 2.8 % (2-4); Hemoglobin 12.8 g/dL (12.0-16.0); Lymphocytes Absolute Auto 2000 /uL (1100-4500); Lymphocytes Percent Auto 23.2 % (25-40); Mean Corpuscular HGB Conc 33.8 % (30-36); Mean Corpuscular Hemoglobin 31.6 PG (26-34); Mean Corpuscular Volume 93.6 fL (80-100); Monocytes Absolute Auto 600 /uL (0-900); Monocytes Percent Auto 6.8 % (3-14); Neutrophils Absolute Auto 5700 /uL (1500-7000); Neutrophils Percent Auto 66.8 % (50-75); Platelet Count 391 X10^3/uL (150-400); Red Blood Cell Count 4.06 X10^6/uL (4.0-5.2); Red Cell Distribution Width 13.5 % (11.6-14.8); White Blood Cell Count 8.5 X10^3/uL (4.5-11.0)
[2023-09-22 19:30] LABS: Alanine Aminotransferase 18 IU/L (<35); Albumin 4.2 g/dL (3.5-5.0); Albumin Globulin Ratio 1.8 (1.0-2.8); Alkaline Phosphatase 94 U/L (38-126); Aspartate Aminotransferase 24 IU/L (14-36); BUN Creatinine Ratio 16.7 (6-22); Bilirubin Total 0.5 mg/dL (0.2-1.3); Blood Urea Nitrogen 15 mg/dL (7-17); Calcium 9.8 mg/dL (8.4-10.2); Carbon Dioxide 26 mmol/L (22-32); Chloride 108 mmol/L (98-107); Cholesterol 212 mg/dL (140-199); Estimated Glomerular Filt Rate > 60 mL/min (>60); Globulin 2.4 g/dL (1.7-4.1); Glucose 110 mg/dL (80-110); HDL Cholesterol 61 mg/dL (40-60); HEMOLYSIS < 15 (0-50); LDL Cholesterol Calculated 121 mg/dL (<100); Potassium 4.7 mmol/L (3.4-5.1); Sodium 139 mmol/L (137-145); Total Protein 6.6 g/dL (6.3-8.2); Triglycerides 149 mg/dL (35-150)
== END ==
PROVIDERS: PCP Physician Assistant; Visit Provider Physician Assistant
DX: Z11.59 Encounter for screening for other viral diseases (principal); R53.83 Other fatigue; E78.00 Pure hypercholesterolemia, unspecified; Z11.4 Encounter for screening for human immunodeficiency virus [HIV]; Z13.6 Encounter for screening for cardiovascular disorders; R73.9 Hyperglycemia, unspecified; R73.03 Prediabetes; E66.9 Obesity, unspecified; Z79.899 Other long term (current) drug therapy
CPT/HCPCS: 80053; 80061; 85025; 86803; 87389

== ENCOUNTER → 2023-10-27 15:46 | Outpatient (CLI) | payer MEDICARE, OTHER, SELFPAY ==
[2023-10-27 17:04] LABS: BUN Creatinine Ratio 23.8 (6-22); Blood Urea Nitrogen 31 mg/dL (7-17); Calcium 9.4 mg/dL (8.4-10.2); Carbon Dioxide 28 mmol/L (22-32); Chloride 107 mmol/L (98-107); Estimated Glomerular Filt Rate 44 mL/min (>60); Glucose 93 mg/dL (80-110); HEMOLYSIS < 15 (0-50); Potassium 5.2 mmol/L (3.4-5.1); Sodium 139 mmol/L (137-145)
== END ==
PROVIDERS: PCP Physician Assistant; Referring Provider Urology; Visit Provider Urology
DX: R32 Unspecified urinary incontinence (principal)
CPT/HCPCS: 36415; 80048

== ENCOUNTER → 2023-12-01 09:50 | Outpatient (CLI) | payer MEDICARE, OTHER, SELFPAY ==
--- NOTE | 2023-12-01 09:52 | DI.CT.S_ITS ---
PROCEDURE: CT IVP A/P W/WO INDICATIONS: Stress urge incontinence TECHNIQUE: Optional 5 mm thick noncontrast images acquired from the diaphragm to the symphysis pubis. After the administration of intravenous contrast, 5 mm thick images acquired from the diaphragm to the symphysis pubis after a 10-minute delay. 2 mm thick coronal and sagittal reformats were then performed of the kidneys and ureters. For radiation dose reduction, the following was used: automated exposure control, adjustment of mA and/or kV according to patient size. COMPARISON: [facility], CT, CT ABDOMEN PELVIS WO/W CON, 02/28/2020, 10:50. FINDINGS: Image quality: Diagnostic Lower chest: Unremarkable lung bases. Scattered atelectasis. Small hiatal hernia and mildly patulous distal esophagus with a small amount of fluid. Borderline cardiomegaly Liver: Sopb-hc-efhxukie hepatic steatosis. No suspicious focal liver lesion Gallbladder and biliary system: Unremarkable, nondilated Pancreas: No ductal dilation. Spleen: Nonenlarged Adrenals: No discrete nodule Kidneys: No solid renal mass. Nonobstructing 5 mm stone is seen in the right lower pole. No hydronephrosis. Pelvic phleboliths are seen, including adjacent to the UVJ. No suspicious ureter filling defects. Non opacification of the left distal ureter may be related to peristalsis Subcentimeter left upper pole hypoattenuating region is too small to characterize, probably a cyst, stable from 2019 Vessels and lymph nodes: The main portal vein is patent. No pathologic lymph nodes by size criteria. Bowel and peritoneum: Stable exophytic region at the gastric posterior fundus, probably a diverticulum, also seen previously. No small bowel obstruction. Colonic diverticula are seen. No pathologic ascites Body wall: Small fat containing umbilical hernia. Mild rectus diastasis Pelvis: No calcified bladder stones identified. Presumed fibroid uterus is present, with heterogeneity . Focal possible fundal endometrial thickening is stable compared to 2019 (), consider ultrasound correlation if clinically indicated Bones: There are degenerative changes. IMPRESSION: No solid renal mass. 5 mm nonobstructing right lower pole renal calculus is present. No obstructing calcified stone identified. The lower tracts could be better evaluated cystoscopy in the setting of hematuria. Other findings as above Dictated by: Thanh Richardson M.D. on 12/01/2023 at 12:55 Approved by: Thanh Richardson M.D. on 12/01/2023 at 13:03
[2023-12-01 10:21] LABS: Estimated Glomerular Filt Rate 58 mL/min (>60)
== END ==
PROVIDERS: Radiology Diagnostic Radiology; PCP Physician Assistant; Referring Provider Urology; Visit Provider Urology
DX: N39.46 Mixed incontinence (principal); N20.0 Calculus of kidney; J98.11 Atelectasis; K44.9 Diaphragmatic hernia without obstruction or gangrene; K76.0 Fatty (change of) liver, not elsewhere classified; K57.90 Diverticulosis of intestine, part unspecified, without perforation or abscess without bleeding; K42.9 Umbilical hernia without obstruction or gangrene; M62.08 Separation of muscle (nontraumatic), other site
CPT/HCPCS: 36415; 74178; 82565; Q9967

== ENCOUNTER → 2024-01-01 | Outpatient (CLI) | payer MEDICARE, OTHER, SELFPAY ==
--- NOTE | 2024-01-01 14:04 | DI.RAD.S_ITS ---
PROCEDURE: XR KUB INDICATIONS: Right renal calculus TECHNIQUE: One view of the abdomen acquired. COMPARISON: None. FINDINGS: Surgical changes and devices: None. Bowel: Bowel gas pattern is normal. Soft tissues: 6 x 3 mm calculus projects over the lower pole the right kidney. Additional probable distal 7 mm calculus noted laterally as well as additional left-sided calculus in the interpolar region measuring 9 mm. Bones: No suspicious bony lesions. IMPRESSION: Probable bilateral nephrolithiasis Approved by: Jean Arredondo M.D. on 01/07/2024 at 18:09
== END ==
PROVIDERS: PCP Physician Assistant; Referring Provider Urology; Visit Provider Urology
DX: N20.0 Calculus of kidney (principal)
CPT/HCPCS: 74018; 82274

== ENCOUNTER → 2024-03-22 11:28 | Outpatient (CLI) | payer MEDICARE, OTHER, SELFPAY | PROVIDERS: PCP Physician Assistant; Visit Provider Urology | DX: R33.9 Retention of urine, unspecified (principal); Z87.448 Personal history of other diseases of urinary system; N20.0 Calculus of kidney | CPT/HCPCS: 87086 ==

== ENCOUNTER 2024-03-29 06:30 | Day surgery (SDC) | payer MEDICARE, OTHER, SELFPAY ==
[2024-02-22 10:48] VITALS: BMI 36.3
[2024-03-24 09:07] VITALS: BMI 34.5
[2024-03-29 07:00] VITALS: BMI 34.3
[2024-03-29 07:07] VITALS: BP 136/82; PULSE 73; RESP 16; TEMP 36.7; O2SAT 94
[2024-03-29] MEDS: LACTATED RINGERS 1,000 ML 42 ML IV (07:18)
--- NOTE | 2024-03-29 07:42 | PM.PREOP ---
Pre-operative Note COVID-19 COVID-19 status: Not tested Interval Note History & Physical reviewed/Exam performed by Physician: Yes Changes to H&P: No
[2024-03-29] MEDS: CEFAZOLIN 2 GM/100 ML PREMIX 100 ML IV (07:53)
--- NOTE | 2024-03-29 08:05 | SUR.OPER ---
Patient is supine on ESWL table, head on pillow, with cushion around arms. Legs are up in cushioned stirrups.
[2024-03-29 08:48] VITALS: BP 151/78; PULSE 79; RESP 12; TEMP 36.2; O2SAT 97
--- NOTE | 2024-03-29 08:49 | P.OP_ITS ---
Procedure & Clinicians Procedure: Right extracorporeal shockwave lithotripsy with cystoscopy and right stent placement Same procedure as scheduled: Yes Indications: This 73-year-old female was found to have a right-sided stone and presents at this time for extracorporeal shockwave lithotripsy and stent placement to treat her stone. Surgeon: Chin Ocasio Click Yes if Unassisted: Yes Anesthesia Type: General Operative Notes Findings: At cystoscopy the urethral meatus was normal urethra was normal along its length. The ureteral orifices were normal position with clear efflux. The bladder exhibited normal mucosa and no other abnormality was noted within the bladder. The 7 Montenegrin by multi length stent was left in good position in the right collecting system. The patient received 2000 [id number] shocks at level 7 with what appeared to be good fragmentation of the stone. The stone appeared to be in the mid kidney. Closure Type: not applicable Specimen(s): none sent Prosthetic devices, grafts, tissues, transplants, or devices: Seven Montenegrin by multi length stent right collecting system no string Estimated Blood Loss (mL): 0 Blood products transfused: none Procedure in detail: Procedure in detail: After informed consent was obtained, the patient was identified brought to the operating room where she was placed in the supine position on the Lithotripter. Once there anesthesia was induced and maintained. Showing an adequate level of anesthesia the patient was then transitioned to the lithotomy position where she was prepped, draped and prepared for Transurethral procedure. After prepping, draping, time-out, administration of antibiotics and ensuring an adequate level of anesthesia a 22 Montenegrin cystoscope was passed through the urethra and in the bladder where cystoscopy was performed. The right ureteral orifice was once again identified and a hybrid wire was passed up and into the collecting system under fluoroscopic guidance. With the the wire in good position the stent was passed over the wire positioned in the renal pelvis via fluoroscopic visualization in the bladder under direct vision. With the stent in good position. The nylon hardness or string was removed in the stent was left in good position patient's bladder was drained in the scope was removed. Patient was then returned to the supine position and the stone targeted via the imaging system. It then received shockwave at level 7 up to 2416 shocks with periodic reimaging and Re localization to ensure maximal energy delivery to the stone. At the above number of shocks the shockwave head was rotated out and fluoroscopy performed the stone appeared to be well fragmented. At this point the patient was awakened having tolerated the procedure well. She was transferred to a gurney and then to the postanesthesia care unit for recovery. There were no complications Complications: none Post-operative Condition: stable Disposition: PACU Plan for aftercare: Discharge this home after awake and alert and oriented to follow up my office in 10-14 days with a KUB. Patient is to strain her urine and save any fragments and bring those to follow-up.
[2024-03-29 08:53] VITALS: BP 142/89; PULSE 77; RESP 10; O2SAT 97
[2024-03-29] MEDS: ACETAMINOPHEN 325 MG TABLET 1000 MG PO (08:56)
[2024-03-29] MEDS: hydrOXYzine 50 MG/ML INJ 25 MG IM (08:57)
[2024-03-29 08:58] VITALS: BP 161/82; PULSE 74; RESP 16; O2SAT 99
[2024-03-29] MEDS: OXYCODONE IR 5 MG TABLET PO ×2 (09:01→10:00)
[2024-03-29 09:03] VITALS: BP 171/83; PULSE 73; RESP 13; O2SAT 98
[2024-03-29] MEDS: OXYBUTYNIN 5 MG TABLET PO (09:12)
[2024-03-29] MEDS: PHENAZOPYRIDINE 100 MG TABLET 200 MG PO (09:12)
[2024-03-29 09:13] VITALS: BP 179/89; PULSE 75; RESP 12; TEMP 36.3; O2SAT 98
== END 2024-03-29 10:04 | disposition home or self-care (01) ==
PROVIDERS: PCP Physician Assistant; Referring Provider Urology; Visit Provider Urology
PROC: (CPT 50590; principal; 2024-03-29 07:45)
DX: N20.0 Calculus of kidney (principal)
CPT/HCPCS: 50590; 52332; 82962; J0330; J0690; J2405; J2704; J3010; J3410

== ENCOUNTER → 2024-04-22 08:33 | Outpatient (CLI) | payer MEDICARE, OTHER, SELFPAY ==
--- NOTE | 2024-04-22 08:34 | DI.RAD.S_ITS ---
PROCEDURE: XR KUB INDICATIONS: Calculus of kidney TECHNIQUE: One view of the abdomen acquired. COMPARISON: [facility], CT, CT IVP A/P W/WO, 12/01/2023, 10:33. [facility], CR, XR KUB, 01/01/2024, 13:10. FINDINGS: Surgical changes and devices: Right nephroureteral stent in expected position. Bowel: Bowel gas pattern is normal. Soft tissues: No suspicious abdominal calcifications. Visualized solid organ contours appear normal in size. Bones: No suspicious bony lesions. IMPRESSION: Right nephroureteral stent without radiopaque urolithiasis. Dictated by: Gareth Connolly M.D. on 04/22/2024 at 11:54 Approved by: Gareth Connolly M.D. on 04/22/2024 at 11:55
== END ==
PROVIDERS: PCP Physician Assistant; Referring Provider Urology; Visit Provider Urology
DX: N20.0 Calculus of kidney (principal); R33.9 Retention of urine, unspecified; Z87.442 Personal history of urinary calculi; Z87.448 Personal history of other diseases of urinary system; Z96.0 Presence of urogenital implants
CPT/HCPCS: 74018; 81002; 82365; 87086

== ENCOUNTER → 2024-04-22 13:23 | Outpatient (CLI) | payer MEDICARE, OTHER, SELFPAY | PROVIDERS: PCP Physician Assistant; Referring Provider Urology; Visit Provider Urology | DX: R33.9 Retention of urine, unspecified (principal); N20.0 Calculus of kidney; Z87.442 Personal history of urinary calculi; Z87.448 Personal history of other diseases of urinary system | CPT/HCPCS: 82365; 87086 ==

== ENCOUNTER → 2024-05-12 11:39 | Outpatient (CLI) | payer MEDICARE, OTHER, SELFPAY ==
[2024-05-12 19:59] LABS: Appearance Urine UA CLEAR; Bilirubin Urine UA NEGATIVE (NEGATIVE); Color Urine UA YELLOW; Glucose Urine UA NEGATIVE (Negative); Ketones Urine UA NEGATIVE (NEGATIVE); Leukocyte Esterase Urine UA TRACE (NEGATIVE); Nitrite Urine UA NEGATIVE (Negative); Occult Blood Urine UA NEGATIVE (Negative); Protein Urine UA NEGATIVE (Negative); Specific Gravity Urine UA <=1.005 (1.000-1.035); Urobilinogen Urine UA 0.2 E.U./dL (0.2)
[2024-05-12 20:05] LABS: pH Urine UA 5.5 (4.5-8.0)
[2024-05-12 20:08] LABS: Bacteria Urine Occasional (0-1); Culture Indicated Urine Cult Not Indicated; RBC Urine 0-1/HPF (0-5/HPF); Squamous Epithelial Cell Urine 0-1 /HPF (0-5/HPF); Urine Volume 10mL (spun); WBC Urine 0-1/HPF (0-5/HPF)
== END ==
PROVIDERS: PCP Physician Assistant; Visit Provider Urology
DX: Z87.448 Personal history of other diseases of urinary system (principal)
CPT/HCPCS: 81003; 81015

== ENCOUNTER → 2024-05-27 09:36 | Outpatient (CLI) | payer MEDICARE, OTHER, SELFPAY ==
[2024-05-27 18:09] LABS: Phosphorous 3.2 mg/dL (2.8-4.1); Uric Acid 7.1 mg/dL (2.5-6.2)
== END ==
PROVIDERS: PCP Physician Assistant; Referring Provider Urology; Visit Provider Urology
DX: R33.9 Retention of urine, unspecified (principal); Z77.22 Contact with and (suspected) exposure to environmental tobacco smoke (acute) (chronic); Z87.442 Personal history of urinary calculi; Z87.448 Personal history of other diseases of urinary system; N20.0 Calculus of kidney; N39.46 Mixed incontinence
CPT/HCPCS: 82310; 83970; 84100; 84550

== ENCOUNTER → 2024-05-28 09:20 | Outpatient (CLI) | payer MEDICARE, OTHER, SELFPAY ==
--- NOTE | 2024-05-28 09:21 | DI.MG.S_ITS ---
BILATERAL DIGITAL SCREENING MAMMOGRAM 3D/2D WITH CAD: 05/28/2024 CLINICAL: Routine screening. Comparison is made to exams dated: 01/27/2023 mammogram, 08/16/2022 mammogram, 07/13/2021 mammogram, 05/26/2020 mammogram, 04/06/2019 mammogram, and 03/10/2018 mammogram - [facility]. There are scattered areas of fibroglandular density (category b / 25%-50% glandular tissue). Current study was also evaluated with a Computer Aided Detection (CAD) system. No significant masses, calcifications, or other findings are seen in either breast. There has been no significant interval change. IMPRESSION: NEGATIVE There is no mammographic evidence of malignancy. A 1 year screening mammogram is recommended. Based on the Tyrer Cuzick model (a risk assessment model) the patient's lifetime risk is 2.7% and her 10 year risk is 2.0%. According to the ACR, ACS, and NCCN guidelines, an annual breast MRI exam along with mammogram is recommended if the patient's lifetime risk is 20% or greater. This exam was interpreted at Station ID: [id number]. NOTE: For mammograms, a report in lay terms will be sent to the patient. Approximately 15% of breast malignancies will not be visualized mammographically. In the management of a palpable breast mass, a negative mammogram must not discourage biopsy of a clinically suspicious lesion. Electronically Signed By: Sandra Villa M.D., Ph.D. estiven/abner:05/30/2024 16:35:05 copy to: TAMI TOLEDO letter sent: Normal Exam ACR BI-RADS Category 1: Negative
== END ==
PROVIDERS: PCP Physician Assistant; Referring Provider Physician Assistant; Visit Provider Physician Assistant
DX: Z12.31 Encounter for screening mammogram for malignant neoplasm of breast (principal)
CPT/HCPCS: 77063; 77067

== ENCOUNTER → 2024-09-30 12:51 | Outpatient (CLI) | payer MEDICARE, OTHER, SELFPAY ==
[2024-09-30 18:36] LABS: Add Manual Diff / Slide Review NO; Basophils Absolute Auto 100 /uL (0-100); Basophils Percent Auto 0.6 % (0-2); Eosinophils Absolute Auto 200 /uL (0-450); Eosinophils Percent Auto 2.5 % (2-4); Hematocrit 39.9 % (36-46); Hemoglobin 13.5 g/dL (12.0-16.0); Lymphocytes Absolute Auto 2000 /uL (1100-4500); Lymphocytes Percent Auto 21.8 % (25-40); Mean Corpuscular HGB Conc 33.8 % (30-36); Mean Corpuscular Hemoglobin 31.9 PG (26-34); Mean Corpuscular Volume 94.4 fL (80-100); Monocytes Absolute Auto 600 /uL (0-900); Monocytes Percent Auto 6.4 % (3-14); Neutrophils Absolute Auto 6200 /uL (1500-7000); Neutrophils Percent Auto 68.7 % (50-75); Platelet Count 456 X10^3/uL (150-400); Red Blood Cell Count 4.23 X10^6/uL (4.0-5.2)
[2024-09-30 18:56] LABS: Alanine Aminotransferase 22 IU/L (<35); Albumin 4.5 g/dL (3.5-5.0); Albumin Globulin Ratio 1.8 (1.0-2.8); Alkaline Phosphatase 106 U/L (38-126); Aspartate Aminotransferase 29 IU/L (14-36); BUN Creatinine Ratio 23.7 (6-22); Bilirubin Total 0.5 mg/dL (0.2-1.3); Blood Urea Nitrogen 23 mg/dL (7-17); Calcium 9.9 mg/dL (8.4-10.2); Carbon Dioxide 26 mmol/L (22-32); Chloride 103 mmol/L (98-107); Estimated Glomerular Filt Rate > 60 mL/min (>60); Globulin 2.5 g/dL (1.7-4.1); Glucose 120 mg/dL (70-99); HEMOLYSIS < 15 (0-50); Potassium 4.6 mmol/L (3.4-5.1); Sodium 139 mmol/L (137-145); Uric Acid 7.4 mg/dL (2.5-6.2)
[2024-09-30 19:26] LABS: TSH w/ Reflex to FT4 0.73 uIU/mL (0.47-4.68)
== END ==
PROVIDERS: PCP Physician Assistant; Visit Provider Physician Assistant
DX: R63.5 Abnormal weight gain (principal); Z79.899 Other long term (current) drug therapy; M25.50 Pain in unspecified joint; E78.00 Pure hypercholesterolemia, unspecified
CPT/HCPCS: 80053; 84443; 84550; 85025

== ENCOUNTER → 2024-10-13 09:01 | Outpatient (CLI) | payer MEDICARE, OTHER, SELFPAY ==
[2024-10-13 19:23] LABS: Platelet Count 428 X10^3/uL (150-400)
[2024-10-13 19:33] LABS: Hemoglobin A1C% w Est Avg Glu 5.6 % (4.0-6.0)
[2024-10-13 19:50] LABS: Cholesterol 198 mg/dL (140-199); HDL Cholesterol 53 mg/dL (40-60); LDL Cholesterol Calculated 116 mg/dL (<100); Triglycerides 146 mg/dL (35-150)
== END ==
PROVIDERS: PCP Physician Assistant; Visit Provider Physician Assistant
DX: R79.89 Other specified abnormal findings of blood chemistry (principal); E78.00 Pure hypercholesterolemia, unspecified; R73.9 Hyperglycemia, unspecified; R63.5 Abnormal weight gain; Z79.899 Other long term (current) drug therapy
CPT/HCPCS: 80061; 83036; 85049

== ENCOUNTER → 2024-12-14 13:04 | Outpatient (CLI) | payer MEDICARE, OTHER, SELFPAY ==
[2024-12-14 19:36] LABS: Hematocrit 39.6 % (36-46); Hemoglobin 13.2 g/dL (12.0-16.0); Mean Corpuscular HGB Conc 33.3 % (30-36); Mean Corpuscular Hemoglobin 30.8 PG (26-34); Mean Corpuscular Volume 92.6 fL (80-100); Platelet Count 476 X10^3/uL (150-400)
[2024-12-14 19:51] LABS: HEMOLYSIS 33 (0-50); Iron 85 ug/dL (37-170)
[2024-12-14 20:00] LABS: Alanine Aminotransferase 17 IU/L (<35); Albumin 4.2 g/dL (3.5-5.0); Albumin Globulin Ratio 1.7 (1.0-2.8); Alkaline Phosphatase 110 U/L (38-126); Blood Urea Nitrogen 29 mg/dL (7-17); Calcium 9.7 mg/dL (8.4-10.2); Carbon Dioxide 24 mmol/L (22-32); Chloride 104 mmol/L (98-107); Estimated Glomerular Filt Rate > 60 mL/min (>60); Globulin 2.5 g/dL (1.7-4.1); Glucose 108 mg/dL (70-99); HEMOLYSIS 20 (0-50); Potassium 4.4 mmol/L (3.4-5.1); Sodium 139 mmol/L (137-145); Total Protein 6.7 g/dL (6.3-8.2); Uric Acid 7.1 mg/dL (2.5-6.2)
[2024-12-14 20:06] LABS: Percent Iron Saturation 28 % (15-50); Total Iron Binding Capacity 303 ug/dL (265-497); Transferrin 250 mg/dL (206-381)
[2024-12-14 20:30] LABS: Ferritin 59 ng/mL (11-264)
[2024-12-14 21:02] LABS: Eosinophils Percent Manual 1.0 % (2-4); Lymphocytes Percent Manual 23.0 % (25-45); Monocytes Percent Manual 7.0 % (2-11); Neutrophils Absolute Manual 7383 /uL (3000-5900); Segmented Neutrophils Percent 69.0 % (38-70); Total Cells Counted 100
[2024-12-14 21:03] LABS: RBC Morphology Normal Morphology
[2024-12-14 21:04] LABS: Toxic Granulation Present
== END ==
PROVIDERS: PCP Physician Assistant; Visit Provider Physician Assistant
DX: D75.839 Thrombocytosis, unspecified (principal); E79.0 Hyperuricemia without signs of inflammatory arthritis and tophaceous disease; I10 Essential (primary) hypertension
CPT/HCPCS: 80053; 82728; 83540; 83550; 84550; 85025

== ENCOUNTER → 2025-01-24 12:57 | Outpatient (CLI) | payer MEDICARE, OTHER, SELFPAY ==
[2025-01-24 19:45] LABS: Vitamin D 25 Hydroxy (D3) 38.5 ng/mL (30.0-100.0)
[2025-01-24 20:33] LABS: Folate > 20.0 ng/mL (2.76-20.0); Vitamin B12 441 pg/mL (239-931)
[2025-01-31 15:09] LABS: ANA Screen, IFA Negative (.)
== END ==
PROVIDERS: PCP Physician Assistant; Visit Provider Family Medicine
DX: M81.0 Age-related osteoporosis without current pathological fracture (principal); D72.9 Disorder of white blood cells, unspecified; D69.1 Qualitative platelet defects
CPT/HCPCS: 82306; 82607; 82746; 85651; 86038; 86140; 86200; 86430

== ENCOUNTER → 2025-02-17 08:43 | Outpatient (CLI) | payer MEDICARE, OTHER, SELFPAY ==
--- NOTE | 2025-02-17 08:45 | DI.CT.S_ITS ---
PROCEDURE: CT ABDOMEN PELVIS W CON INDICATIONS: bloating, constipation, wt gain, LLQ tenderness, Lflank tend TECHNIQUE: After the administration of intravenous contrast, axial sections acquired from the lung bases to the pubic symphysis. Coronal and sagittal reformats were performed. For radiation dose reduction, the following was used: automated exposure control, adjustment of mA and/or kV according to patient size. COMPARISON: None. FINDINGS: Image quality: Diagnostic. Lower Chest: No significant findings. ABDOMEN: Liver: No solid mass. Gallbladder: No radiopaque gallstones or wall thickening. Biliary ducts: No biliary dilation. Pancreas: No ductal dilation. Spleen: Size is within normal limits. Adrenal Glands: No adrenal nodules. Kidneys and Ureters: No hydronephrosis. No solid mass. No complex renal cystic lesion which requires follow up. Stomach and Bowel: Normal colonic caliber, without significant wall thickening. Peritoneum: No abnormal intraperitoneal fluid. No free air. Ventral Wall: No significant ventral hernia. Abdominal Nodes: No retroperitoneal or mesenteric adenopathy by size criteria. Vessels: Aorta and inferior vena cava are normal in size. PELVIS: Pelvic Organs: Uterine fibroids measuring up to 3.3 cm. No adnexal mass seen. Bladder: No bladder wall thickening, accounting for underdistention. Pelvic Nodes: No enlarged lymph nodes. Miscellaneous: No inguinal hernias are seen. Bones: No aggressive osseous abnormality. IMPRESSION: No acute intra-abdominal abnormality seen. Dictated by: Derrick Arias M.D. on 02/19/2025 at 11:31 Approved by: Derrick Arias M.D. on 02/19/2025 at 11:35
[2025-02-17 09:14] LABS: Estimated Glomerular Filt Rate > 60 mL/min (>60)
== END ==
LOC: CT 08:44
PROVIDERS: PCP Physician Assistant; Referring Provider Family Medicine; Visit Provider Family Medicine
DX: R14.0 Abdominal distension (gaseous) (principal); R10.9 Unspecified abdominal pain; R19.8 Other specified symptoms and signs involving the digestive system and abdomen; D25.9 Leiomyoma of uterus, unspecified
CPT/HCPCS: 36415; 74177; 82565; Q9967